=== PATIENT | male | born 1965 ===

== ENCOUNTER → 2018-02-05 21:29 | Outpatient (REF) | payer OTHER, SELFPAY ==
[2018-02-05 22:21] LABS: Add Manual Diff / Slide Review NO; Eosinophils Percent Auto 4.1 % (2-4); Hematocrit 49.1 % (41-53); Hemoglobin 16.5 g/dL (13.5-17.5); Lymphocytes Percent Auto 24.9 % (25-40); Mean Corpuscular HGB Conc 33.6 % (30-36); Mean Corpuscular Volume 92.1 fL (80-100); Monocytes Percent Auto 9.6 % (3-14); Neutrophils Absolute Auto 4500 /uL (1500-7000); Neutrophils Percent Auto 60.4 % (50-75); Platelet Count 322 X10^3/uL (150-400); Red Blood Cell Count 5.33 X10^6/uL (4.5-5.9); Red Cell Distribution Width 13.1 % (11.6-14.8); White Blood Cell Count 7.5 X10^3/uL (4.5-11.0)
[2018-02-05 22:45] LABS: Alanine Aminotransferase 35 IU/L (21-72); Albumin 4.5 g/dL (3.5-5.0); Albumin Globulin Ratio 1.8 (1.0-2.8); Alkaline Phosphatase 58 U/L (38-126); Aspartate Aminotransferase 22 IU/L (17-59); Bilirubin Total 0.4 mg/dL (0.2-1.3); Blood Urea Nitrogen 20 mg/dL (9-20); Calcium 10.1 mg/dL (8.4-10.2); Carbon Dioxide 22 mmol/L (22-32); Chloride 106 mmol/L (98-107); Estimated Glomerular Filt Rate > 60.0 mL/min (>60); Globulin 2.5 g/dL (1.7-4.1); Glucose 101 mg/dL (70-100); HEMOLYSIS < 15 (0-50); Potassium 4.6 mmol/L (3.4-5.1); Sodium 143 mmol/L (137-145)
[2018-02-05 23:29] LABS: Erythrocyte Sedimentation Rate 1 MM/HR (0-15)
[2018-02-05 23:49] LABS: Folate 12.6 ng/mL (2.76-20.0); Vitamin B12 446 pg/mL (239-931)
[2018-02-06 11:17] LABS: C-Reactive Protein Quant < 0.5 mg/dL (<1.0)
[2018-02-07 13:36] LABS: EBV EBNA Antibody IgG > 600.00 U/mL (< 18.00); EBV Virus IgM Ab < 36.00 U/mL (< 36.00); EVB Early IgG < 9.00 U/mL (< 9.00)
[2018-02-07 14:35] LABS: Homocysteine 13.5 umol/L (< 11.4)
[2018-02-08 14:40] LABS: Anti Gliadin IgG Ab 3 U (<20); Gliadin Gluten IgA 3 U (<20)
[2018-02-11 05:52] LABS: Methylmalonic Acid 220 nmol/L (87-318)
== END ==
LOC: LAB 21:29
PROVIDERS: Visit Provider Naturopath
DX: F32.9 Major depressive disorder, single episode, unspecified (principal); R53.83 Other fatigue; G25.81 Restless legs syndrome; R19.7 Diarrhea, unspecified; Z82.41 Family history of sudden cardiac death
CPT/HCPCS: 36415; 80053; 82607; 82746; 83090; 83520; 83921; 85025; 85651; 86140; 86663; 86664; 86665